=== PATIENT | female | born 1945 | race Caucasian/White ===

== ENCOUNTER 2016-03-06 09:39 | Outpatient (CLI) | payer MEDICARE, OTHER | END 2016-03-06 09:40 | disposition home or self-care (01) | DX: Z12.31 Encounter for screening mammogram for malignant neoplasm of breast (principal); Z80.3 Family history of malignant neoplasm of breast ==

== ENCOUNTER 2016-10-15 15:04 | Emergency (ER) | payer MEDICARE, OTHER ==
[2016-10-15 16:56] LABS: BASOPHILS % (AUTO) 0.3 %; EOSINOPHILS # (AUTO) 0.4 10^3/uL (0.0-0.7); EOSINOPHILS % (AUTO) 7.7 %; HCT - HEMATOCRIT 38.3 % (37.0-47.0); HGB - HEMOGLOBIN 12.6 g/dL (12.0-16.0); LYMPHOCYTES # (AUTO) 1.4 10^3/uL (1.5-3.5); LYMPHOCYTES % (AUTO) 29.1 %; MEAN CORPUSCULAR HEMOGLOBIN 28.1 pg (27.0-31.0); MEAN CORPUSCULAR HGB CONC 32.9 g/dL (32.0-36.0); MEAN CORPUSCULAR VOLUME 85.4 fL (81.0-99.0); MEAN PLATELET VOLUME 7.9 fL (7.9-10.8); MONOCYTES # (AUTO) 0.4 10^3/uL (0.0-1.0); MONOCYTES % (AUTO) 7.3 %; NEUTROPHILS # (AUTO) 2.7 10^3/uL (1.5-6.6); NEUTROPHILS % (AUTO) 55.6 %; NUCLEATED RED BLOOD CELLS AUTO 0.1 /100WBC; RED BLOOD COUNT 4.48 10^6/uL (4.20-5.40); RED CELL DISTRIBUTION WIDTH 13.9 % (12.0-15.0); UNCORRECTED WHITE BLOOD COUNT 4.8 x10^3/uL; WHITE BLOOD COUNT 4.8 x10^3/uL (4.8-10.8)
[2016-10-15 17:10] LABS: ALBUMIN/GLOBULIN RATIO 1.3 (1.0-2.2); BILIRUBIN,TOTAL 0.7 mg/dL (0.2-1.0); CREATININE 0.8 mg/dL (0.4-1.0); POTASSIUM 4.5 mmol/L (3.5-5.0); TOTAL PROTEIN 7.2 g/dL (6.7-8.2)
[2016-10-15 17:34] VITALS: BP 126/77
--- NOTE | 2016-10-15 17:35 | ED Physician Documentation ---
PD HPI CHEST PAIN - Stated complaint Stated Complaint: CHEST PX - Chief complaint Chief Complaint: Cardiac - History obtained from History obtained from: Patient - History of Present Illness Timing - onset: Today (about an hour or so before coming to ED.) Timing - onset during: Rest (lying down) Timing - duration: Hours Timing - details: Abrupt onset. No: Still present (lasted just few minutes, dissipated after she got up from nap.) Quality: Aching, Dull, Pain Location: Substernal Radiation: Neck Worsened by: No: Inspiration Associated symptoms: Shortness of air. No: Diaphoresis, Nausea, Feeling faint / dizzy, General Weakness, Palpitations, Cough Similar symptoms before: No diagnosis (intermittent similar pains typically while lying. No noted exertional symptoms but she does not do regular exercise per se.), Work up / diagnostics (stress testing couple years ago was okay at the time.) Recently seen: Not recently seen Review of Systems Ten Systems: 10 systems reviewed and negative Constitutional: denies: Fever, Chills Nose: denies: Rhinorrhea / runny nose, Congestion Throat: denies: Sore throat Respiratory: denies: Cough GI: denies: Abdominal Pain, Nausea, Vomiting, Diarrhea PD PAST MEDICAL HISTORY - Allergies Allergies/Adverse Reactions: Allergies Allergy/AdvReac Type Severity Reaction Status Date / Time No Known Drug Allergies Allergy Verified 10/15/16 15:10 PD ED PE NORMAL - Vitals Vital signs reviewed: Yes - General General: Alert and oriented X 3, No acute distress, Well developed/nourished - HEENT HEENT: Moist mucous membranes, Pharynx benign - Neck Neck: Supple, no meningeal sign, No adenopathy - Cardiac Cardiac: RRR, No murmur - Respiratory Respiratory: Clear bilaterally - Abdomen Abdomen: Soft, Non tender - Back Back: No CVA TTP - Derm Derm: Normal color, Warm and dry - Extremities Extremities: No tenderness to palpate, No edema, No calf tenderness / cord - Neuro Neuro: Alert and oriented X 3, No motor deficit, Normal speech Results - Vitals Vitals: Vital Signs - 24 hr 10/15/16 10/15/16 15:08 17:33 Temperature 36.2 C L Heart Rate 85 66 Respiratory 18 16 Rate Blood Pressure 125/78 126/77 O2 Saturation 98 95 Oxygen O2 Source Room air - EKG (time done) 15:12 Rate: Rate (enter#) (70) Rhythm: NSR [place]: Normal Intervals: Normal MI Ischemia: Normal ST segments. No: ST elevation c/w ischemia, ST depression Compare to prior EKG: Unchanged from prior EKG - Labs Labs: Laboratory Tests 10/15/16 10/15/16 10/15/16 16:47 16:47 16:47 WBC 4.8 RBC 4.48 Hgb 12.6 Hct 38.3 MCV 85.4 MCH 28.1 MCHC 32.9 RDW 13.9 Plt Count 220 MPV 7.9 Neut # 2.7 Lymph # 1.4 L Bibb # 0.4 Eos # 0.4 Baso # 0.0 Absolute Nucleated RBC 0.00 Nucleated RBCs 0.1 Sodium 138 Potassium 4.5 Chloride 102 Carbon Dioxide 27 Anion Gap 9.0 BUN 19 Creatinine 0.8 Estimated GFR (MDRD) 71 L Glucose 109 H Calcium 10.0 Total Bilirubin 0.7 AST 25 ALT 23 Alkaline Phosphatase 87 Troponin I < 0.04 Total Protein 7.2 Albumin 4.0 Globulin 3.2 Albumin/Globulin Ratio 1.3 Lipase 32 PD MEDICAL DECISION MAKING - ED course Complexity details: reviewed results (normal ECG and negative troponin several hours after chest pain episode. She appears well. ), considered differential, d/ w patient Departure - Departure Disposition: 01 Home, Self Care Clinical Impression: Chest pain Qualifiers: Chest pain type: precordial pain Qualified Code(s): R07.2 - Precordial pain Condition: Stable Record reviewed to determine appropriate education?: Yes Instructions: ED Chest Pain NonCardiac Follow-Up: Palak Pittman PA-C [Primary Care Provider] - Comments: Your EKG and troponin tests are normal. You have a normal heart rhythm here. It does not sound like heart attack or heart related per se. It may have been an esophageal spasm. Follow-up with your primary care as needed. Discharge Date/Time: 10/15/16 17:54
== END 2016-10-15 17:54 | disposition home or self-care (01) ==
LOC: ED 15:04
DX: R07.2 Precordial pain (principal)
CPT/HCPCS: 36415; 80053; 83690; 84484; 85025; 93005; 99283; 99284